=== PATIENT | female | born 1995 ===

== ENCOUNTER 2023-05-02 14:23 | Outpatient (CLI) | payer OTHER, SELFPAY ==
[2023-05-02 14:59] LABS: Basophils Absolute Auto 0.1 K/mm3 (0.0-0.1); Basophils Percent Auto 0.7 % (0.2-1.2); Eosinophils Absolute Auto 0.2 K/mm3 (0-0.3); Eosinophils Percent Auto 3.1 % (0-4.4); Hematocrit 31.6 % (37.0-47.0); Hemoglobin 9.1 g/dL (12.0-15.0); Immature Granulocyte Absolute 0.03 K/mm3 (0.00-0.031); Immature Granulocyte Percent A 0.4 % (0-0.5); Lymphocytes Percent Auto 32.1 % (18.3-44.2); Mean Corpuscular HGB Conc 28.8 g/dl (32-36); Mean Corpuscular Hemoglobin 18.8 pg (26-34); Mean Corpuscular Volume 65.3 fl (80-100); Mean Platelet Volume 9.6 fl (7.4-10.4); Monocytes Absolute Auto 0.5 K/mm3 (0.1-0.6); Monocytes Percent Auto 6.6 % (2.6-8.5); Neutrophils Absolute Auto 4.3 K/mm3 (1.3-6.7); Neutrophils Percent Auto 57.1 % (45.5-73.1); Platelet Count Result 472 k/mm3 (150-375); Red Blood Count 4.84 M/mm3 (4.2-5.4); Red Cell Distribution Width 21.7 % (11.5-14.5); White Blood Count 7.5 K/mm3 (4.5-10.0)
[2023-05-02 15:05] LABS: Anisocytosis 1+ (NORMAL); Hypochromasia 1+ (NORMAL); Microcytosis 1+ (NORMAL); Ovalocytes 1+ (NORMAL); Platelet Estimate Increased (Adequate); Schistocytes None Seen (NORMAL)
[2023-05-02 15:06] LABS: Poikilocytosis 1+ (NORMAL)
[2023-05-02 20:52] LABS: Alanine Aminotransferase 13 U/L (6-35); Albumin Level 4.6 g/dL (3.5-5.1); Alkaline Phosphatase 58 U/L (38-126); Anion Gap 6 mmol/L (8-16); Aspartate Amino Transferase 17 U/L (14-36); Bilirubin,Total 0.3 mg/dL (0.2-1.3); Blood Urea Nitrogen 9 mg/dL (7-17); Calcium 9.7 mg/dL (8.4-10.2); Carbon Dioxide 26 mmol/L (22-30); Chloride 106 mmol/L (98-107); Estimated Glomerular Filt Rate > 60; Glucose 93 mg/dL (65-110); Lactate Dehydrogenase 147 U/L (120-246); Potassium 4.1 mmol/L (3.4-5.0); Sodium 138 mmol/L (137-145)
[2023-05-02 20:59] LABS: Iron 48 ug/dL (37-170)
[2023-05-02 21:08] LABS: Percent Iron Saturation 11 % (20-50)
[2023-05-03 15:01] LABS: Ferritin 6.43 ng/mL (6.24-137)
[2023-05-04 05:16] LABS: Vitamin B12 < 159.0 pg/mL (239-931)
[2023-05-04 05:24] LABS: Folic Acid 14.3 ng/mL (2.76->20)
[2023-05-05 10:28] LABS: Methylmalonic Acid 928 nmol/L (87-318)
[2023-05-08 11:34] LABS: Hematocrit 33.1 % (35.0-45.0); Hemoglobin 9.2 g/dL (11.7-15.5); MCH 18.9 pg (27.0-33.0); MCV 67.8 fL (80.0-100.0); RDW 20.1 % (11.0-15.0); Red Blood Cell Count 4.88 Mill/uL (3.80-5.10); Soluble Transferrin Receptor 4.04 mg/L (0.76-1.76)
== END 2023-05-02 14:24 | disposition home or self-care (01) ==
PROVIDERS: Nurse Practitioner Family; Visit Provider Internal Medicine Hematology & Oncology
DX: D50.9 Iron deficiency anemia, unspecified (principal)
CPT/HCPCS: 36415; 80053; 82607; 82728; 82746; 83021; 83540; 83550; 83615; 83921; 84238; 85025